=== PATIENT | female | born 1965 | race Caucasian/White ===

== ENCOUNTER → 2021-10-20 10:27 | Outpatient (BNVA) | payer MEDICAID, SELFPAY | PROVIDERS: PCP Internal Medicine; Visit Provider Nurse Practitioner Family | DX: R53.83 Other fatigue (principal); G43.109 Migraine with aura, not intractable, without status migrainosus; G56.00 Carpal tunnel syndrome, unspecified upper limb | CPT/HCPCS: 99212 ==

== ENCOUNTER → 2022-04-26 09:44 | Outpatient (BNVA) | payer MEDICAID, SELFPAY | PROVIDERS: PCP Internal Medicine; Visit Provider Nurse Practitioner Family | DX: G43.109 Migraine with aura, not intractable, without status migrainosus (principal); R53.83 Other fatigue; G56.00 Carpal tunnel syndrome, unspecified upper limb | CPT/HCPCS: 99212 ==

== ENCOUNTER → 2023-01-09 11:23 | Outpatient (BNVA) | payer MEDICAID, SELFPAY | PROVIDERS: PCP Internal Medicine; Visit Provider Nurse Practitioner Family | DX: G43.109 Migraine with aura, not intractable, without status migrainosus (principal); R53.83 Other fatigue; R41.3 Other amnesia; Z79.899 Other long term (current) drug therapy | CPT/HCPCS: 99212 ==

== ENCOUNTER 2023-09-23 10:03 | Outpatient (AMB) | payer MEDICAID, SELFPAY ==
--- NOTE | 2023-09-23 10:06 | A.OFFVIS_ITS ---
Intake Vital Signs 09/23/23 10:06 Height 5 ft 8 in Intake Visit Reasons: 6m Follow up - LVM w/address Intake Note: Patient presents for 6 month follow up. I have all kinds of issues, I'm still having all the same issues Allergies fentanyl Adverse Reaction (Intermediate, Verified 09/23/23 10:15) Unknown Medication List - Last Reconciled 09/23/23 by LUZ Woodruff albuterol sulfate 90 mcg/actuation (ProAir HFA) 2 puffs PO Q6H PRN cholecalciferol (vitamin D3) 100 mcg PO DAILY cyproheptadine 4 - 6 mg (1 - 1.5 x 4 mg) PO BEDTIME 30 days famotidine 20 mg PO DAILY hydroxychloroquine 200 mg PO BID magnesium oxide 400 mg PO BEDTIME 30 days riboflavin (vitamin B2) 400 mg PO DAILY 90 days sumatriptan succinate 50 - 100 mg orally at onset of headache, may repeat in 2 hrs PRN; max 2 tabs per day or 4 tabs/week (may take with Ibuprofen) 30 days HPI HPI Comments History of Present Illness Details 57-yr-old female presents for f/u visit. Pt denies any significant interval medical changes. However, she has had some increased stress as her son was recently dx'd w/ seizure d/o. Pt has had 2 migraine attacks requiring her to take her sumatriptan. One day, she did have an onset of migraine aura, but rested in a dark place and it self-resolved. May have an occasional mild headache- responsive to Tylenol. Her new sumatriptan prescription comes in blister packs that are difficult to open during a migraine attack. Still can have fragmented sleep. States her RLS is stable- a few times a week, as she is falling asleep, her RLE will kick on its own. No nocturnal leg cramps. Can have random stabbing pains- attributes to her fibromyalgia- these have been better. Her hand symptoms have been better, worse if cold and then wears a wrist splint. Can wake up snoring. Always congested- has seasonal allergies. Tries to avoid using steroid nasal sprays. Does sleep in a recliner. [facility] Medical History Anemia Arthritis COVID-19 virus infection Obstructive sleep apnea Restless leg syndrome Surgical History Hx of dilation and curettage Hx of tubal ligation Hx of vein stripping Hx of carpal tunnel repair Family History Father HTN (hypertension) Prostate cancer Mother Fibromyalgia Maternal Grandmother Diabetes Paternal Grandfather Heart attack Son Grand mal seizure Social History Household Members: Family Household Members Other:: son Alcohol intake: never Patient Tobacco Use Status: Former Tobacco user Quit Date: >12 yrs Substance Use Type: Crack/Cocaine and Marijuana Physical Exam Const General: cooperative and no acute distress Orientation/consciousness: patient oriented x3 Resp Effort & Inspection: normal respiratory effort and able to speak in complete sentences Neuro General: patient oriented x3 Cranial nerves: Yes CN's II-XII intact bilaterally Cognition (Neuro): normal cognition Psych Appearance: grossly normal Mental Status: mental status grossly normal Speech and movement: Normal speech and movement present Affect: normal affect Attitude: cooperative Assessment & Plan Assessment & Plan (1) Migraine with aura: Code(s): G43.109 - Migraine with aura, not intractable, without status migrainosus (2) Sleep difficulties: Code(s): G47.9 - Sleep disorder, unspecified (3) Snoring: Code(s): R06.83 - Snoring (4) Nasal congestion: Code(s): R09.81 - Nasal congestion Plan For migraine w/ aura- Continue Magnesium 400 mg qhs. Continue Riboflavin 200 mg bid. Continue Cyproheptadine 4-6 mg q evening. Continue Sumatriptan 100 mg 1/2-1 tab prn. Previous migraine tx trials- Rizatriptan 10mg prn- not effective. Future considerations: prn gepant, adding topiramate for prevention. Migraine tx contraindications: anti-HTNisve agents d/t h/o near syncope w/ Procardia use. For h/o MAUREEN- Monitor clinically. Sleeps in a recliner. Trial Azelastine nasal spray- 1-2 spays into each nostril qhs. Future considerations: follow-up HST. f/u in 6 months or sooner. Medications: New azelastine administer into each nostril 2 sprays intranasal BID 30 mL 6RF 30 days Refilled sumatriptan succinate 50 - 100 mg orally at onset of headache, may repeat in 2 hrs PRN; max 2 tabs per day or 4 tabs/week (may take with Ibuprofen) 12 tabs 6RF migraine headache 30 days riboflavin (vitamin B2) 400 mg PO DAILY 90 tabs 2RF 90 days cyproheptadine 4 - 6 mg (1 - 1.5 x 4 mg) PO BEDTIME 45 tabs 6RF 30 days Coding Level of Care Code Est Pt Level 4 (09954) Diagnoses Migraine with aura G43.109 Sleep difficulties G47.9 Snoring R06.83 Nasal congestion R09.81
== END 2023-09-23 11:05 | disposition home or self-care (01) ==
PROVIDERS: PCP Internal Medicine; Visit Provider Nurse Practitioner Family
DX: G43.109 Migraine with aura, not intractable, without status migrainosus (principal); G47.9 Sleep disorder, unspecified; R06.83 Snoring; R09.81 Nasal congestion
CPT/HCPCS: 99214

== ENCOUNTER → 2023-09-23 10:03 | Outpatient (BNVA) | payer MEDICAID, SELFPAY | PROVIDERS: PCP Internal Medicine; Visit Provider Nurse Practitioner Family | DX: G43.109 Migraine with aura, not intractable, without status migrainosus (principal); G47.9 Sleep disorder, unspecified; R06.83 Snoring; R09.81 Nasal congestion | CPT/HCPCS: 99212 ==

== ENCOUNTER 2024-03-24 10:24 | Outpatient (AMB) | payer MEDICAID, SELFPAY ==
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
== END 2024-03-24 11:44 | disposition home or self-care (01) ==
PROVIDERS: PCP Internal Medicine; Visit Provider Nurse Practitioner Family
DX: G43.109 Migraine with aura, not intractable, without status migrainosus (principal); G56.00 Carpal tunnel syndrome, unspecified upper limb; G47.9 Sleep disorder, unspecified; R06.83 Snoring
CPT/HCPCS: 99214

== ENCOUNTER → 2024-03-24 10:24 | Outpatient (BNVA) | payer MEDICAID, SELFPAY | PROVIDERS: PCP Internal Medicine; Visit Provider Nurse Practitioner Family | DX: G43.109 Migraine with aura, not intractable, without status migrainosus (principal); G56.00 Carpal tunnel syndrome, unspecified upper limb; G47.9 Sleep disorder, unspecified; R06.83 Snoring | CPT/HCPCS: 99212 ==

== ENCOUNTER 2024-08-25 11:22 | Outpatient (AMB) | payer MEDICAID, SELFPAY ==
--- NOTE | 2024-08-25 11:26 | A.OFFVIS_ITS ---
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 States they were done about 5-10 yrs ago. Pt has hx of cellulitis and states she has LE swelling/lymphedema. Pt states she does her own lymphatic message. Hx of Left LE DVT and discoloration. Pt states lymphedema started last September 2023 when she was less active. 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 Complaints include pain over varicosities, swelling of lower extremities, cramping, fatigue, and heaviness of the lower extremities. She does have evidence of a prior healed ulceration. In addition she has had prior bouts of cellulitis. It has been affecting there daily activities including walking. It is noted more so in right leg. Patient reports prior vein stripping by Dr. Zamudio in addition to venous ablation is by Dr. Alexandra. Unsure what veins were treated Patient does have a history of DVT nearly 30 years ago in left lower extremity Patient denies any history of phlebitis. But does have recurrent bouts of cellulitis Trial of compression includes - was in a prior lymphedema clinic that did provide her compression. They now present for vascular evaluation regarding their varicose veins. [facility] Medical History Obstructive sleep apnea Restless leg syndrome COVID-19 virus infection Arthritis Anemia Surgical History Hx of dilation and curettage Hx of tubal ligation Hx of vein stripping Hx of carpal tunnel repair Family History Father HTN (hypertension) Prostate cancer Mother Fibromyalgia Maternal Grandmother Diabetes Paternal Grandfather Heart attack Son Grand mal seizure Social History Household Members: Family Household Members Other:: son Alcohol intake: never Patient Tobacco Use Status: Former Tobacco user Substance Use Type: Crack/Cocaine and Marijuana Review of Systems Const Reports as per HPI ENT Reports no additional complaints Card Denies chest pain, Denies chest pain at rest and Denies chest pain with activity Resp Denies chest congestion and Denies cough GI Reports no additional complaints Musc Details: pain over varicosities, aching of lower extremities, swelling, cramping, heaviness and tiredness, itching Denies abnormal gait Skin/Breast Reports pruritus and Denies wounds Neuro Reports no additional complaints and Denies abnormal gait Psych Denies no additional complaints Physical Exam Const General: cooperative, healthy appearing and comfortable Orientation/consciousness: oriented to person, oriented to place and oriented to time Neck Carotids: no bruits Chest Chest palpation & inspection: normal inspection of the chest and normal palpation of entire chest wall Resp Effort & Inspection: normal respiratory effort and able to speak in complete sentences Cardio Rate: regular rate Heart sounds: S1 normal heart sound present and S2 normal heart sound present Peripheral pulses: Peripheral pulses 2+ throughout GI Inspection: Yes normal to inspection Skin Other: +3 edema, right greater than left. CEAP Classification C5 - healed ulceration Ep - Etiology Primary As - superficial veins P - reflux General skin exam: dry skin Neuro General: oriented to person, oriented to place and oriented to time Extrem Right lower extremity: full ROM, normal capillary refill and edema Left lower extremity: full ROM, normal capillary refill and edema Psych Mental Status: mental status grossly normal Assessment & Plan Assessment & Plan (1) Varicose veins of right lower extremity with inflammation: Code(s): I83.11 - Varicose veins of right lower extremity with inflammation Category: Medical Plan: In short patient does have a prior history venous disease. She has had prior treatments. I have taken the liberty of ordering venous insufficiency testing to see what has been done in the past and if she has new refluxing veins. We did discuss routine conservative measures including compression, elevation, exercise. She will follow up with us after testing. (2) Lymphedema: Code(s): I89.0 - Lymphedema, not elsewhere classified Category: Medical Plan: She does have a prior history of lymphedema. She was treated at a lymphedema clinic for a little bit and did receive compression stockings from them. It has been refractory to this treatment. Should her venous testing prove to be negative she may require lymphedema pumps. In addition on physical we are noticing hyperpigmentation, lymphorrhea, and hyperplasia. It appears that she has stage 2 lymphedema. We will plan for lymphedema pumps for her as well. Thank you for allowing us to assist in her care. If there are any questions or concerns please do not hesitate to contact us. Plan The patient had an opportunity to ask questions regarding the treatment plan. All questions were answered. Imaging studies, laboratory studies and physical exam results were discussed and reviewed in detail. No major barriers to understanding were identified. The patient expressed understanding and agreement with the above treatment plan. The patient is aware they should contact our office by phone for worsening of the current condition or the appearance of new symptoms. Thank you for allowing me to participate in the vascular care of this patient. If you have any questions or concerns regarding the treatment for the above condition please do not hesitate to contact me. The office telephone contact is [phone]. This note is constructed using voice recognition software. While every effort has been made to ensure accuracy, master ocean errors may have been included. Thank you for allowing me to participate in the care of your patient. Yours sincerely, Dominic Bruno MD, FACS, R.P.V.I. Orders: Orders US venous duplex LE BI 1 Week I83.11 - Varicose veins of right lower extremity with inflammation Coding Level of Care Code New Pt Level 4 (18131) Diagnoses Varicose veins of right lower extremity with inflammation I83.11 Lymphedema I89.0
== END 2024-08-25 12:57 | disposition home or self-care (01) ==
PROVIDERS: PCP Internal Medicine; Visit Provider Surgery Vascular Surgery
DX: I83.11 Varicose veins of right lower extremity with inflammation (principal); I89.0 Lymphedema, not elsewhere classified
CPT/HCPCS: 99204

== ENCOUNTER → 2024-08-25 11:22 | Outpatient (BNVA) | payer MEDICAID, SELFPAY | PROVIDERS: PCP Internal Medicine; Visit Provider Surgery Vascular Surgery | DX: I83.11 Varicose veins of right lower extremity with inflammation (principal); I89.0 Lymphedema, not elsewhere classified; Z87.891 Personal history of nicotine dependence | CPT/HCPCS: 99202 ==

== ENCOUNTER 2024-09-24 10:10 | Outpatient (REF) | payer MEDICAID, SELFPAY | END 2024-09-24 10:11 | disposition home or self-care (01) | LOC: HO.US 10:10 | PROVIDERS: PCP Internal Medicine; Visit Provider Surgery Vascular Surgery | DX: I83.11 Varicose veins of right lower extremity with inflammation (principal) | CPT/HCPCS: 93970 ==

== ENCOUNTER → 2024-09-24 10:14 | Outpatient (BNV) | payer MEDICAID, SELFPAY | PROVIDERS: PCP Internal Medicine; Visit Provider Radiology Diagnostic Radiology | DX: I87.2 Venous insufficiency (chronic) (peripheral) (principal) | CPT/HCPCS: 93970 ==

== ENCOUNTER 2024-10-15 10:02 | Outpatient (AMB) | payer MEDICAID, SELFPAY ==
--- NOTE | 2024-10-15 10:14 | A.OFFVIS_ITS ---
Intake Visit Reasons: follow up s/p US 09/24/24 Intake Note: Patient presents for follow up US performed on 09/24/24. Patients legs are swollen and tight . Feet are also swollen. Accompanied by: Self / Same As Patient Allergies fentanyl Adverse Reaction (Intermediate, Verified 10/15/24 10:17) Unknown HPI HPI follow up s/p US 09/24/24: Details: The patient is a 58-year-old female presenting with a follow-up for venous insufficiency and bilateral lower extremity swelling. She has a history of vein stripping and venous ablation. The patient reports persistent edema with an [id number] texture suggestive of lymphedema, as well as past cellulitis treated with antibiotics. She currently experiences bilateral leg swelling with white bumps noted on the skin and has tried a compression sleeve previously. The patient has begun using a vibration plate as part of her home management, which she intends to try following a family recommendation. She has also had a trial of compression therapy with minimal relief. [facility] Medical History Obstructive sleep apnea Restless leg syndrome COVID-19 virus infection Arthritis Anemia Surgical History Hx of dilation and curettage Hx of tubal ligation Hx of vein stripping Hx of carpal tunnel repair Family History Father HTN (hypertension) Prostate cancer Mother Fibromyalgia Maternal Grandmother Diabetes Paternal Grandfather Heart attack Son Grand mal seizure Social History Household Members: Family Household Members Other:: son Alcohol intake: never Patient Tobacco Use Status: Former Tobacco user Substance Use Type: Crack/Cocaine and Marijuana Review of Systems Const All systems reviewed & are unremarkable except as noted in HPI and below Reports no additional complaints ENT Reports Normal hearing present Card Denies chest pain, Denies chest pain at rest, Denies chest pain with activity and Denies pedal edema Resp Denies cough GI Denies abdominal pain Musc Denies abnormal gait, Denies muscle cramps and Denies radiating pain into limb Skin/Breast Denies skin ulcer and Denies wounds Neuro Reports Normal hearing present and Denies abnormal gait Psych Reports no additional complaints Physical Exam Const General: cooperative, healthy appearing and comfortable Orientation/consciousness: oriented to person, oriented to place and oriented to time HEENT Head: Yes normal to inspection Neck Neck: Yes normal visual inspection Carotids: no bruits Chest Chest palpation & inspection: normal inspection of the chest Resp Effort & Inspection: normal respiratory effort and able to speak in complete sentences Auscultation: clear to auscultation bilaterally, no crackles, no rales, no rhonchi and no wheezes Cardio Rate: regular rate Rhythm: regular rhythm Heart sounds: S1 normal heart sound present and S2 normal heart sound present Bruits: no carotid bruits Peripheral pulses: Peripheral pulses 2+ throughout GI Inspection: Yes normal to inspection Skin Wounds: no wounds Hair: normal Neuro General: oriented to person, oriented to place and oriented to time Cranial nerves: Yes CN's II-XII intact bilaterally and Yes Normal hearing present Cognition (Neuro): normal cognition Motor exam (neuro): 5/5 motor strength present throughout Extrem Other: venous exam: +2 edema with put a rongeur skin and lymphedema Right in cm: Thigh 98 Knee 75 Calf 68 Ankle 33 Left in cm: Thigh 100 Knee 77 Calf 66.5 Ankle 32 Hip/waist unable to measure General: No clubbing, No cyanosis and No edema Psych Appearance: grossly normal Mental Status: mental status grossly normal Speech and movement: Normal speech and movement present Results Reviewed Results Reviewed: Brief summary of venous insufficiency testing is as follows: right great saphenous vein: Focally positive at knee old right small saphenous vein: negative right accessory vein: none present left great saphenous vein: negative left small saphenous vein: negative left accessory vein: none present Please note there is no evidence of any venous aneurysms or significant tortuosity Assessment & Plan Assessment & Plan (1) Varicose veins of right lower extremity with inflammation: Code(s): I83.11 - Varicose veins of right lower extremity with inflammation Category: Medical Plan: Right lower extremity is focally positive and would not treat that is short segment. Will pursue more so the lymphedema treatment. (2) Lymphedema: Code(s): I89.0 - Lymphedema, not elsewhere classified Category: Medical Plan: In short the patient has late on sent lymphedema. The patient has been on conservative treatment for at least 3 months with minimal relief. Patient has tried 30 mm of mercury compression garments, elevation, exercise healthy diet and doing manual says self MLD to the best of their ability for over 4 weeks but with no significant relief. She has been compliant with the program but has provided minimal relief. In addition on physical we are noticing hyperpigmentation, lymphorrhea, and hyperplasia. It appears that she has stage 2 lymphedema. Patient has completed multiple forms of conservative therapy yet significant symptoms remain. Patient requires the use of a pneumatic compression device which we will assist in trying to have the patient obtain them. A pneumatic compression device will help reduce swelling and other lymphedema comorbidities. Thank you for allowing us to assist in this patient's care. Patient Instructions: - Await further instructions regarding measurements for the lymphedema pump fittings. - Plan for attendance at the lymphedema clinic for further assessment and instruction. - Coordinate with clinic staff for scheduling assistance, considering personal caregiving duties. - Continue observing leg symptoms and report any significant changes. - Use conservative measures including compression therapy at home to try to alleviate as much edema as possible Coding Level of Care Code Est Pt Level 4 (71287) Diagnoses Varicose veins of right lower extremity with inflammation I83.11 Lymphedema I89.0
== END 2024-10-15 10:48 | disposition home or self-care (01) ==
LOC: HO.HVS 10:03
PROVIDERS: PCP Internal Medicine; Visit Provider Surgery Vascular Surgery
DX: I83.11 Varicose veins of right lower extremity with inflammation (principal); I89.0 Lymphedema, not elsewhere classified
CPT/HCPCS: 99214

== ENCOUNTER → 2024-10-15 10:02 | Outpatient (BNVA) | payer MEDICAID, SELFPAY | PROVIDERS: PCP Internal Medicine; Visit Provider Surgery Vascular Surgery | DX: I83.11 Varicose veins of right lower extremity with inflammation (principal); I89.0 Lymphedema, not elsewhere classified | CPT/HCPCS: 99212 ==

== ENCOUNTER 2024-12-30 14:17 | Outpatient (AMB) | payer MEDICAID, SELFPAY ==
--- NOTE | 2024-12-30 14:27 | MHC.OFFVIS ---
Vital Signs 12/30/24 14:27 Height 5 ft 8 in Intake Visit Reasons: Lymphedema Clinic Intake Note: Lymphedema clinic for bilateral LE swelling. Pt states trauma to Left LE and swelling is worse on the thigh and the right LE has swelling throughout. Started september 2023 Accompanied by: Son Allergies fentanyl Adverse Reaction (Intermediate, Verified 12/30/24 14:32) Unknown HPI HPI Lymphedema Clinic: Details: Ivet is presenting today for our lymphedema clinic. She continues to endorse bilateral lower extremity swelling and discomfort, right slightly more than left. She has no new concerns today. [facility] Medical History Obstructive sleep apnea Restless leg syndrome COVID-19 virus infection Arthritis Anemia Surgical History Hx of dilation and curettage Hx of tubal ligation Hx of vein stripping Hx of carpal tunnel repair Family History Father HTN (hypertension) Prostate cancer Mother Fibromyalgia Maternal Grandmother Diabetes Paternal Grandfather Heart attack Son Grand mal seizure Social History Household Members: Family Household Members Other:: son Alcohol intake: never Patient Tobacco Use Status: Former Tobacco user Substance Use Type: Crack/Cocaine and Marijuana Review of Systems Const Reports as per HPI and Denies weakness ENT Reports Normal hearing present and Denies dizziness Card Reports as per HPI, Denies chest pain, Denies chest pain at rest, Denies chest pain with activity, Denies dyspnea and Denies dyspnea on exertion Resp Reports as per HPI, Denies cough, Denies dyspnea and Denies dyspnea on exertion GI Reports as per HPI, Denies abdominal pain, Denies nausea and Denies vomiting Musc Denies numbness Skin/Breast Reports as per HPI, Denies erythema and Denies wounds Neuro Reports Normal hearing present, Denies dizziness, Denies numbness, Denies Sensory deficit (Neuro) and Denies weakness Psych Reports no additional complaints Endo Reports no additional complaints Physical Exam Const General: healthy appearing and no acute distress Orientation/consciousness: patient oriented x3 HEENT Head: Yes normal to inspection Ears: hearing grossly normal bilaterally Mouth: Normal oral and palatal mucosa present Resp Effort & Inspection: normal respiratory effort and able to speak in complete sentences Auscultation: clear to auscultation bilaterally Cardio Jugular venous distension: no JVD Rate: regular rate Rhythm: regular rhythm Heart sounds: S1 normal heart sound present and S2 normal heart sound present Bruits: no abdominal aortic bruits, no carotid bruits, no femoral bruits and no renal bruits Peripheral pulses: Peripheral pulses 2+ throughout GI Inspection: Yes normal to inspection Palpation (GI): No Abdominal aortic bruit present Skin General skin exam: no rashes or lesions noted Wounds: no wounds Hair: normal Neuro General: patient oriented x3 Cranial nerves: Yes Normal hearing present Cognition (Neuro): normal cognition Gait exam (Neuro): Normal gait present Motor exam (neuro): 5/5 motor strength present throughout Sensory Exam: No Sensory deficit (Neuro) Extrem Other: Bilateral lower extremities: +2 pitting edema noted with hyperkeratosis. Fibrosis and skin folds noted on the upper thighs. Many areas of hyperkeratosis and very dry skin. General: Yes normal to inspection, Yes full ROM, Yes capillary refill normal and Yes normal gait Assessment & Plan Assessment & Plan (1) Lymphedema: Code(s): I89.0 - Lymphedema, not elsewhere classified Category: Medical Plan: Ivet is presenting today to be fitted for lymphedema pumps. They have had more than 3 months, starting on 10/15/24, of conservative treatments with elevation, compression stockings daily use with 20-30mmHg, and physical activity with minimal relief. They continue to have persistent symptoms despite conservative treatments. They are presenting with hyperpigmentation, lymphorrhea, hyperkeratosis, and 2+ pitting edema. They state the right leg is worse than the left and there is extension into her upper thigh and abdominal area. They also complain of intermittent pain and itchiness. It appears that they have stage II lymphedema. Cortez from [employer] will be fitting them for a pneumatic compression device, which will get mailed to their house. The patient has lymphedema that extends to her upper thigh and abdominal region. The basic pneumatic compression device would not be adequate for the patient; it is not clinically appropriate due to the extensive lymphedema noted. The advanced compression device will be the best in this case. We will also send a referral to our lymphedema specialist due to the extensive nature of her lymphedema; she may require further treatment in addition to the lymphedema compression pumps. Thank you allowing us to care for the patient. Orders: Referrals Lymphedema Clinic Referral I89.0 - Lymphedema, not elsewhere classified Coding Level of Care Code Est Pt Level 4 (09943) Diagnoses Lymphedema I89.0
== END 2024-12-30 15:10 | disposition home or self-care (01) ==
LOC: HO.HVS 14:18
PROVIDERS: PCP Internal Medicine; Visit Provider Physician Assistant Surgical
DX: I89.0 Lymphedema, not elsewhere classified (principal)
CPT/HCPCS: 99214

== ENCOUNTER → 2024-12-30 14:17 | Outpatient (BNVA) | payer MEDICAID, SELFPAY | PROVIDERS: PCP Internal Medicine; Visit Provider Physician Assistant Surgical | DX: I89.0 Lymphedema, not elsewhere classified (principal) | CPT/HCPCS: 99212 ==

== ENCOUNTER 2025-02-18 10:56 | Outpatient (AMB) | payer MEDICAID, SELFPAY ==
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
[2025-02-18 11:04] VITALS: PULSE 71; O2SAT 98
== END 2025-02-18 12:04 | disposition home or self-care (01) ==
LOC: HO.HSMS 10:57
PROVIDERS: PCP Internal Medicine; Visit Provider Nurse Practitioner Family
DX: G43.109 Migraine with aura, not intractable, without status migrainosus (principal); G56.02 Carpal tunnel syndrome, left upper limb; G47.9 Sleep disorder, unspecified; R06.83 Snoring
CPT/HCPCS: 99214

== ENCOUNTER → 2025-02-18 10:56 | Outpatient (BNVA) | payer MEDICAID, SELFPAY | PROVIDERS: PCP Internal Medicine; Visit Provider Nurse Practitioner Family | DX: G43.109 Migraine with aura, not intractable, without status migrainosus (principal); G56.02 Carpal tunnel syndrome, left upper limb; G47.9 Sleep disorder, unspecified; R06.83 Snoring | CPT/HCPCS: 99212 ==